=== PATIENT | female | born 1960 | race Two or more races ===

== ENCOUNTER 2022-04-23 09:13 | Outpatient (CLI) | payer OTHER | END 2022-04-23 09:21 | disposition home or self-care (01) | LOC: SONOGRAMA 09:13 | PROVIDERS: ATTEND Pathology Anatomic Pathology & Clinical Pathology | DX: D34 Benign neoplasm of thyroid gland (principal); E04.9 Nontoxic goiter, unspecified; E06.5 Other chronic thyroiditis; E04.2 Nontoxic multinodular goiter; E03.8 Other specified hypothyroidism ==